=== PATIENT | female | born 1990 | race Caucasian/White ===

== ENCOUNTER 2017-11-24 19:18 | Emergency (ER) | payer OTHER ==
[~2017-11-24] VITALS: Ht 170.2 cm; Wt 65.8 kg
[~2017-11-24 19:18] MED LIST: AMOX500 PO; CYAN1000 PO; CYCL10 PO; DIAZ5 PO; FLUO10 PO; HYDACE5 PO; NAPR500 PO; OXYACE5T PO; PRED20 PO; PREN-16 PO; PROM25 PO; TRAM50 PO
[2017-11-24 20:19] LABS: Source, Urine Clean Catch
[2017-11-24 20:24] LABS: Bilirubin, Urine Neg (Neg); Blood, Urine Neg (Neg); Glucose Qualitative, Urine Neg (Neg); Ketones, Urine Neg (Neg); Leukocyte Esterase, Urine 2+ (Neg); Nitrite, Urine Neg (Neg); Protein, Urine Neg (Neg); Specific Gravity, Urine 1.005 (1.003-1.022); Urobilinogen, Urine NORM (Normal)
[2017-11-24 20:29] LABS: Appearance, Urine Clear (Clear); Color, Urine Yellow (P-Yellow)
[2017-11-24 20:30] LABS: Bacteria Few /hpf; Red Blood Cells, Urine 0-2 /hpf (0-2); Squamous Epithelial Cells Mod /hpf (Few)
[2017-11-24] MEDS ORDERED: Macrobid 100 M100 MG PO (20:59)
[2017-11-24] MEDS ORDERED: Pyridium200 MG PO (20:59)
== END 2017-11-24 21:00 | disposition home or self-care (01) ==
LOC: ER 19:18
PROVIDERS: Physician Assistant
DX: N39.0 Urinary tract infection, site not specified (principal); Z87.891 Personal history of nicotine dependence; Z79.899 Other long term (current) drug therapy
CPT/HCPCS: 81001; 81025; 87086; 99283